=== PATIENT | female | born 1965 | race African-American/Black ===

== ENCOUNTER 2021-06-23 18:11 | Emergency (ER) | payer OTHER ==
[~2021-06-23] VITALS: Ht 175.3 cm; Wt 105.0 kg
[2021-06-23 18:17] VITALS: BP 130/94
[2021-06-23] MEDS ORDERED: MAGNESIUM/ALUMINUM HYDROXIDE/SIMETHICONE 30ML UDC PO STA (19:33)
[2021-06-23] MEDS ORDERED: ACETAMINOPHEN 325MG TABLET PO STA (19:33)
[2021-06-23] MEDS ORDERED: VISCOUS LIDOCAINE 2% 15 ML UDC PO STA (19:33)
[2021-06-23 20:06] LABS: CLARITY URINE CLEAR (CLEAR); COLOR URINE YELLOW (YELLOW); KETONES URINE NEGATIVE (NEGATIVE); LEUKOCYTE ESTERASE URINE NEGATIVE (NEGATIVE); NITRITE URINE NEGATIVE (NEGATIVE); OCCULT BLOOD URINE NEGATIVE (NEGATIVE); PH URINE 5.5 (4.5-8.0); PROTEIN URINE NEGATIVE (NEGATIVE); SPECIFIC GRAVITY URINE 1.025 (1.005-1.030)
[2021-06-23 20:06] LABS: BASOPHILS % 0.4 % (0.0-2.0); EOSINOPHILS % 0.8 % (0.0-5.0); HEMATOCRIT. 41.3 % (36.0-48.0); HEMOGLOBIN. 13.6 g/dL (12.0-16.0); LYMPHOCYTES % 37.1 % (20.0-50.0); MEAN CORPUSCULAR HEMOGLOBIN 29.4 pg (28.0-32.0); MEAN CORPUSCULAR VOLUME 89.5 fL (81.0-99.0); MEAN PLATELET VOLUME 7.9 fl (7.4-10.4); NEUTROPHILS % 55.7 % (40.0-76.0); PLATELET 297 x1000/uL (130-400); RED BLOOD CELL COUNT 4.61 mill/uL (4.2-5.4); RED CELL DISTRIBUTION WIDTH 13.5 % (11.6-14.6)
[2021-06-23 20:09] LABS: CHLORIDE 107 mEq/L (98-107)
== END 2021-06-23 20:30 | disposition left against medical advice (07) ==
LOC: ER 18:11
DX: R10.9 Unspecified abdominal pain (principal); M19.90 Unspecified osteoarthritis, unspecified site; Z98.84 Bariatric surgery status; Z87.440 Personal history of urinary (tract) infections; Z98.890 Other specified postprocedural states
CPT/HCPCS: 36415; 80053; 81003; 83880; 85025; 93005; 99284